=== PATIENT | male | born 1995 | race Caucasian/White ===

== ENCOUNTER 2020-10-30 22:29 | Inpatient (IN) | payer MEDICAID ==
[~2020-10-30] VITALS: Ht 172.7 cm; Wt 72.6 kg
[2020-10-31] MEDS ORDERED: ONDANSETRON HCL/PF 4 MG/2 ML VIAL ONE (00:09)
[2020-10-31] MEDS ORDERED: MORPHINE SULFATE INJ 2 MG/ML DISP.SYRIN ONE (00:09)
--- NOTE | 2020-10-31 00:17 | NUR ---
PATIENT CAME TO THE EMERGENCY ROOM COMPLAINING ABOUT RIGHT-SIDED ABDOMINAL NON-RADIATING PAIN THAT WAS IN THE RIGHT-MEDIAL ABDOMEN 2x HOURS PRIOR TO ARRIVAL. PATIENT IS ALERT AND ORIENTED TO TIME, PLACE, AND PERSON. PATIENT IS BREATHING EVENLY AND UNLABORED ON ROOM AIR. CONNECTED TO THE MONITOR FOR CONSTANT MONITORING.
[2020-10-31 00:24] LABS: BASOPHILS % (AUTO) 0.4 % (0.0-2.0); HEMATOCRIT 45 % (39-51); HEMOGLOBIN 15.6 g/dL (13.5-17.5); LYMPHOCYTES # (AUTO) 3.3 /CMM (0.8-4.8); LYMPHOCYTES % (AUTO) 42.7 % (20.0-44.0); MEAN CORPUSCULAR HGB CONC 35 g/dl (31.0-36.0); MEAN CORPUSCULAR VOLUME 87 fL (80-96); MONOCYTES # (AUTO) 0.5 /CMM (0.1-1.30); NEUTROPHILS # (AUTO) 3.8 /CMM (1.8-8.9); NEUTROPHILS % (AUTO) 48.9 % (43.0-81.0); PLATELET COUNT (AUTO) 214 /CMM (150-450); RED BLOOD CELL COUNT(AUTO) 5.22 MIL/uL (4.5-6.0); WHITE BLOOD COUNT (AUTO) 7.8 K/uL (4.3-11.0)
--- NOTE | 2020-10-31 00:24 | NUR ---
BLOOD COLLECTED AND SENT TO THE LABORATORY
[2020-10-31] MEDS ORDERED: MORPHINE SULFATE INJ 2 MG/ML DISP.SYRIN IV ONE (00:30)
[2020-10-31] MEDS ORDERED: IV NS 0.9% 1,000 ML BAG IV ONE (00:30)
[2020-10-31] MEDS ORDERED: ONDANSETRON HCL/PF 4 MG/2 ML VIAL IVP ONE (00:30)
[2020-10-31 00:33] LABS: CALCIUM, SERUM 9.7 mg/dL (8.5-10.1); CREATININE 1.1 mg/dL (0.6-1.3); POTASSIUM 3.7 mmol/L (3.5-5.1)
--- NOTE | 2020-10-31 00:35 | NUR ---
PATIENT HAS BEEN SENT TO RADIOLOGY FOR COMPUTED TOMOGRAPHY.
[2020-10-31 00:38] LABS: ALBUMIN 4.5 g/dL (3.4-5.0); BILIRUBIN,DIRECT 0.2 mg/dL (0.0-0.2); BILIRUBIN,TOTAL 0.8 mg/dL (0.2-1.0); TOTAL PROTEIN, SERUM 7.7 g/dL (6.4-8.2)
[2020-10-31 00:45] LABS: BILIRUBIN,URINE Negative (NEGATIVE); BLOOD, URINE Small Ery/uL (NEGATIVE); COLOR,URINE YELLOW (YELLOW); LEUKOCYTE ESTERASE ,URINE Negative (NEGATIVE); NITRITE, URINE Negative (NEGATIVE); PH,URINE 6.5 (5.0-8.0); PROTEIN,URINE Negative (NEGATIVE); UGLUCOSE Negative (NEGATIVE); UROBILINOGEN,URINE 0.2 EU/dL (0.2)
--- NOTE | 2020-10-31 00:55 | NUR ---
DR. RICO SPEAKING WITH RADIOLOGIST
[2020-10-31 00:58] LABS: BACTERIA,URINE None seen /HPF (None Seen); SQUAMOUS EPITHELIAL CELL,UR Few /HPF (None Seen); WBC,URINE 0-2 /HPF (0-3)
[2020-10-31] MEDS ORDERED: PIPERACILLIN /TAZOBACTAM 3.375 G in IV D5W 50 ML IV ONE (01:00)
[2020-10-31] MEDS ORDERED: PIPERACILLIN /TAZOBACTAM 3.375 G VIAL IV ONE (01:06)
--- NOTE | 2020-10-31 01:08 | NUR ---
DR. LUCERO PAGED PER ER ORDER.
--- NOTE | 2020-10-31 01:12 | NUR ---
DR. BROWN PAGED PER ER ORDER.
--- NOTE | 2020-10-31 01:26 | NUR ---
MICHAELLE JOHNSON SPOKE TO DR. BROWN REGARDING PT.
--- NOTE | 2020-10-31 01:33 | NUR ---
DR. LUCERO PAGED PER ER ORDER.
[2020-10-31] MEDS ORDERED: IV NS 0.9% 1,000 ML IV PRN (02:00)
[2020-10-31] MEDS ORDERED: ONDANSETRON HCL/PF 4 MG/2 ML VIAL IVP PRN (02:00)
[2020-10-31] MEDS ORDERED: MORPHINE SULFATE INJ 2 MG/ML DISP.SYRIN IV PRN (02:00)
[2020-10-31] MEDS ORDERED: PIPERACILLIN /TAZOBACTAM 4.5 G in IV D5W 50 ML IV SCH (06:00)
--- NOTE | 2020-10-31 06:49 | NUR ---
REPORT GIVEN TO GEO CHILDS FOR [facility].
--- NOTE | 2020-10-31 07:03 | NUR ---
PATIENT TAKEN UP TO ASSIGNED ROOM FOR [facility]MA.
--- NOTE | 2020-10-31 07:30 | NUR ---
RN MS NOTES PT IN BED, AWAKE, ALERT AND ORIENTED, NO COMPLAINT OF ABDOMINAL PAIN AT THIS TIME, RESPIRATIONS NORMAL, ON ROOM AIR, ROOM SET UP ORIENTATION PROVIDED TO PT. VERBALIZED UNDERSTANDING, PROCEDURE FOR LAPAROSCOPIC APPENDECTOMY RECEIVED FROM DR. BROWN, PT INFORMED, CALL LIGHT WITHIN REACH.
[2020-10-31 08:00] VITALS: BP 105/67
[2020-10-31] MEDS ORDERED: PIPERACILLIN /TAZOBACTAM 3.375 G in IV D5W 100 ML IV SCH (08:00)
[2020-10-31] MEDS ORDERED: PANTOPRAZOLE 40 MG VIAL IV SCH (09:00)
[2020-10-31] MEDS: FAMOTIDINE/PF INJ 20 MG/2 ML VIAL IV SCH ×2 (09:13→20:44)
[2020-10-31] MEDS ORDERED: BUPIVACAINE 0.5 % PF 150 MG/30 ML VIAL ONE (10:28)
[2020-10-31] MEDS ORDERED: BACITRACIN 50000 UNITS/VIAL ONE (10:28)
[2020-10-31] MEDS ORDERED: ANESTHESIA TRAY IN PYXIS 1 EA TRAY MC ONE (10:28)
[2020-10-31] MEDS: PIPERACILLIN /TAZOBACTAM 3.375 G in IV D5W 100 ML IV SCH ×2 (10:58→17:16)
--- NOTE | 2020-10-31 12:00 | NUR ---
RN MS NOTES PT PICKED UP BY O.R. STAFF FOR SURGERY VIA BED, CONSENTS SIGNED, VS STABLE.
[2020-10-31] MEDS ORDERED: MIDAZOLAM HCL 2 MG/2ML VIAL ONE (12:34)
[2020-10-31] MEDS ORDERED: BUPIVACAINE MPF 0.5% W/EPI INJ 30 ML VIAL ONE (12:58)
[2020-10-31] MEDS ORDERED: HYDROCODONE/APAP 5/325MG TABLET PO PRN (14:30)
[2020-10-31 14:32] VITALS: BP 126/63
--- NOTE | 2020-10-31 14:39 | NUR ---
RN MS NOTES RECEIVED PT FROM O.R. STAFF VIA BED, PT IS AWAKE, ALERT AND ORIENTED, NO COMPLAINT AT THIS TIME, BREATHING PATTERN NORMAL, CALL LIGHT WITHIN REACH, POST OP ORDERS RECEIVED FROM MD, KEPT PT COMFORTABLE.
[2020-10-31 16:00] VITALS: BP 115/55
[2020-10-31 18:00] VITALS: BP 134/90
[2020-10-31 20:00] VITALS: BP 140/85
--- NOTE | 2020-10-31 20:03 | NUR ---
MS RN OPENING NOTE: RECEIVED PT FROM DAY SHIFT NURSE. RESTING UN BED COMFORTABLY. NO PAIN OR DISTRESS NOTED. BREATHING EVEN AND UNLABORED. BED IN LOW AND LOCKED POSITION. CALL LIGHT WITHIN REACH. WILL CONTINUE TO MONITOR
[2020-11-01] MEDS: PIPERACILLIN /TAZOBACTAM 3.375 G in IV D5W 100 ML IV SCH ×2 (02:04→09:21)
--- NOTE | 2020-11-01 06:52 | NUR ---
MS RN CLOSING NOTE: PT. RESTING IN BED COMFORTABLY. ALL MEDS GIVEN ORDERED AND ANAI. WELL. ALL NEEDS ATTENDED. NO PAIN OR DISTRESS NOTED. BREATHING EVEN AND UNLABORED. BED IN LOW AND LOCKED POSITION. CALL LIGHT WITHIN REACH. WILL ENDORSE TO DAY SHIFT NURSE
--- NOTE | 2020-11-01 07:30 | NUR ---
RN MS NOTES PT AWAKE, ALERT AND ORIENTED, NO COMPLAINT OF PAIN AT THIS TIME, BREATHING PATTERN NORMAL, WALKING ALONG THE HALLWAY WITH STEADY GAIT, NEEDS ATTENDED.
[2020-11-01 08:00] VITALS: BP 123/67
[2020-11-01 08:07] LABS: BASOPHILS % (AUTO) 0.1 % (0.0-2.0); EOSINOPHILS % (AUTO) 0.6 % (0.0-6.0); HEMATOCRIT 40 % (39-51); HEMOGLOBIN 13.6 g/dL (13.5-17.5); LYMPHOCYTES # (AUTO) 2.5 /CMM (0.8-4.8); LYMPHOCYTES % (AUTO) 21.8 % (20.0-44.0); MEAN CORPUSCULAR HGB CONC 34 g/dl (31.0-36.0); MEAN CORPUSCULAR VOLUME 87 fL (80-96); MONOCYTES % (AUTO) 8.7 % (2.0-12.0); NEUTROPHILS % (AUTO) 68.8 % (43.0-81.0); PLATELET COUNT (AUTO) 192 /CMM (150-450); RED BLOOD CELL COUNT(AUTO) 4.58 MIL/uL (4.5-6.0); WHITE BLOOD COUNT (AUTO) 11.6 K/uL (4.3-11.0)
[2020-11-01 08:25] LABS: CALCIUM, SERUM 8.8 mg/dL (8.5-10.1); CREATININE 1.1 mg/dL (0.6-1.3); MAGNESIUM 2.2 mg/dL (1.8-2.4); POTASSIUM 3.7 mmol/L (3.5-5.1)
[2020-11-01 08:26] LABS: THYROID STIMULATING HORMONE 1.344 uIU/mL (0.358-3.74)
[2020-11-01] MEDS: FAMOTIDINE/PF INJ 20 MG/2 ML VIAL IV SCH (09:21)
[2020-11-01] MEDS ORDERED: INFLUENZA VACCINE 2020-21 0.5 ML DISP.SYRIN IM ONE (11:30)
--- NOTE | 2020-11-01 11:41 | NUR ---
RN NOTES PT AGREED TO HAVE THE FLU SHOT, ORDER GIVEN BY MD, ADMINISTERED MEDICATION TO LEFT DELTOID, TOLERATED WELL.
--- NOTE | 2020-11-01 11:44 | NUR ---
ADMINISTERED FLU VACCINE (WITH CONSENT) IM DELTOID
--- NOTE | 2020-11-01 12:34 | NUR ---
RN MS NOTES PT AWAKE, ALERT AND ORIENTED, WALKING IN HIS ROOM, NOT IN DISTRESS, NO COMPLAINT OF PAIN, NO BLEEDING NOTED TO LAP SITES, PT CLEARED BY DR. BROWN, SEEN BY DR. KNIGHT, DISCHARGE ORDER GIVEN, DISCHARGE AND MEDICATION INSTRUCTIONS PROVIDED TO PT, VERBALIZED UNDERSTADING, NEW PRESCRIPTION GIVEN TO PT, BELONGINGS ACCOUNTED FOR, FLU SHOT GIVEN ORDERED, ASSISTED PT TO HOSPITAL LOBBY, LEFT VIA PRIVATE CAR IN STABLE CONDITION.
== END 2020-11-01 12:30 | disposition home or self-care (01) | DRG 234 ==
LOC: ER 22:32 → TRANSITION 10-31 03:52 → MED 10-31 06:56
PROVIDERS: ADMIT Nurse Practitioner Acute Care; ATTEND Nurse Practitioner Acute Care
PROC: 0DTJ4ZZ Resection of Appendix, Percutaneous Endoscopic Approach (ICD-10-PCS; principal; 2020-10-31)
DX: K35.80 Unspecified acute appendicitis (principal)
CPT/HCPCS: 36415; 80048-TC; 80061-TC; 80076-TC; 81001; 83690-TC; 83735-TC; 84100-TC; 84443-TC; 85025-TC; 85730-TC; 87081-TC; C9113; C9803; G0378; J2250; J2270; J2405; J2543; J3490; J7030; J7060; Q2036

== ENCOUNTER 2021-06-28 11:22 | Emergency (ER) | payer MEDICAID ==
[~2021-06-28] VITALS: Ht 172.7 cm; Wt 72.6 kg
--- NOTE | 2021-06-28 11:43 | NUR ---
BIBS FROM HOME TO ER BED 6. AAOX4. NOT IN RESP DISTRESS. AMBULATORY. CAME IN FOR LOWER LEFT AND RIGHT ABDOMINAL PAIN X 1 MONTH. PT ALSO REPORTING THAT HE HAVE PAIN ON HIS RIGHT LOWER BACK. DENIES ANY DYSURIA NOR PROBLEMS WITH BM. -N/V/D. PT REPORTS THAT HE HAS AN APPENDECTOMY IN NOVEMBER OF THIOS YEAR, NOTED LEFT LOWER ABD SURGICAL SCAR. MD IS AT THE BEDSIDE FOR EVAL. AWAITING ORDERS
[2021-06-28 11:55] LABS: BILIRUBIN,URINE Negative (NEGATIVE); COLOR,URINE YELLOW (YELLOW); LEUKOCYTE ESTERASE ,URINE Negative (NEGATIVE); NITRITE, URINE Negative (NEGATIVE); PROTEIN,URINE Negative (NEGATIVE); UGLUCOSE Negative (NEGATIVE); UROBILINOGEN,URINE 0.2 EU/dL (0.2)
[2021-06-28 11:58] LABS: BACTERIA,URINE None seen /HPF (None Seen); SQUAMOUS EPITHELIAL CELL,UR Few /HPF (None Seen); WBC,URINE 0-2 /HPF (0-3)
[2021-06-28 12:18] LABS: CALCIUM, SERUM 9.4 mg/dL (8.5-10.1); CREATININE 0.8 mg/dL (0.6-1.3); POTASSIUM 4.5 mmol/L (3.5-5.1)
[2021-06-28 12:24] LABS: ALBUMIN 3.9 g/dL (3.4-5.0); BILIRUBIN,DIRECT 0.2 mg/dL (0.0-0.2); BILIRUBIN,TOTAL 0.9 mg/dL (0.2-1.0)
[2021-06-28] MEDS ORDERED: DICY20TA11 PO (12:25)
[2021-06-28 12:48] LABS: BASOPHILS % (AUTO) 0.5 % (0.0-2.0); EOSINOPHILS % (AUTO) 1.6 % (0.0-6.0); HEMATOCRIT 44 % (39-51); HEMOGLOBIN 14.7 g/dL (13.5-17.5); LYMPHOCYTES # (AUTO) 2.2 K/uL (0.8-4.8); LYMPHOCYTES % (AUTO) 39.9 % (20.0-44.0); MEAN CORPUSCULAR HGB CONC 33 g/dl (31.0-36.0); MEAN CORPUSCULAR VOLUME 88 fL (80-96); MONOCYTES # (AUTO) 0.5 K/uL (0.1-1.30); MONOCYTES % (AUTO) 9.7 % (2.0-12.0); NEUTROPHILS # (AUTO) 2.7 K/uL (1.8-8.9); NEUTROPHILS % (AUTO) 48.3 % (43.0-81.0); PLATELET COUNT (AUTO) 195 K/uL (150-450); RED BLOOD CELL COUNT(AUTO) 5.06 MIL/uL (4.5-6.0); WHITE BLOOD COUNT (AUTO) 5.6 K/uL (4.3-11.0)
--- NOTE | 2021-06-28 13:47 | NUR ---
Patient discharged to home in stable condition. Written and verbal after care instructions given. Patient verbalizes understanding of instruction. Pt ambulatory with a steady gait
[2021-06-28 13:48] VITALS: BP 115/67
== END 2021-06-28 13:49 | disposition home or self-care (01) ==
LOC: ER 11:22
DX: R10.11 Right upper quadrant pain (principal); R10.31 Right lower quadrant pain; R10.12 Left upper quadrant pain
CPT/HCPCS: 36415; 80048-TC; 80076-TC; 81001; 83690-TC; 85025-TC

== ENCOUNTER 2022-04-14 14:46 | Emergency (ER) | payer MEDICAID ==
[~2022-04-14] VITALS: Ht 172.7 cm; Wt 70.3 kg
[2022-04-14 14:46] VITALS: BP 117/57
[~2022-04-14 14:46] MED LIST: DICY20TA11 PO
--- NOTE | 2022-04-14 15:03 | NUR ---
PT SEEN AND EXAMINED BY .
[2022-04-14] MEDS ORDERED: KETOROLAC TROMETHAMINE INJ 30 MG/ML VIAL IM ONE (15:30)
[2022-04-14] MEDS ORDERED: KETOROLAC TROMETHAMINE INJ 30 MG/ML VIAL ONE (15:32)
[2022-04-14] MEDS ORDERED: IBUP-1957 PO (16:17)
--- NOTE | 2022-04-14 16:22 | NUR ---
Patient discharged to home in stable condition. Written and verbal after care instructions given. Patient verbalizes understanding of instruction. Ambulatory- gait even and steady
== END 2022-04-14 16:23 | disposition home or self-care (01) ==
LOC: ER 14:49
DX: M25.561 Pain in right knee (principal); M25.562 Pain in left knee; Z60.2 Problems related to living alone; Z79.899 Other long term (current) drug therapy
CPT/HCPCS: 73564 ×2; 96372; 99283; J1885